=== PATIENT | male | born 1995 | race Caucasian/White ===

== ENCOUNTER 2022-05-13 15:02 | Outpatient (RCR) | payer SELFPAY | END 2022-05-17 | LOC: M OUTALCOH 15:02 | PROVIDERS: ATTEND Psychiatry & Neurology Psychiatry | DX: F11.20 Opioid dependence, uncomplicated (principal); F15.20 Other stimulant dependence, uncomplicated; F12.20 Cannabis dependence, uncomplicated; F17.200 Nicotine dependence, unspecified, uncomplicated ==

== ENCOUNTER → 2022-06-17 | Outpatient (RCR) | payer OTHER | LOC: M OUTALCOH 05-20 12:44 | PROVIDERS: ATTEND Psychiatry & Neurology Psychiatry | DX: F11.20 Opioid dependence, uncomplicated (principal); F15.20 Other stimulant dependence, uncomplicated; F12.20 Cannabis dependence, uncomplicated; F17.200 Nicotine dependence, unspecified, uncomplicated ==

== ENCOUNTER 2022-07-16 09:00 | Outpatient (RCR) | payer OTHER | END 2022-07-17 | LOC: M OUTALCOH 09:00 | PROVIDERS: ATTEND Psychiatry & Neurology Psychiatry | DX: F11.20 Opioid dependence, uncomplicated (principal); F15.20 Other stimulant dependence, uncomplicated; F12.20 Cannabis dependence, uncomplicated; F17.200 Nicotine dependence, unspecified, uncomplicated ==

== ENCOUNTER → 2022-08-17 | Outpatient (RCR) | payer OTHER ==
[~2022-08-17] MED LIST: BACT800T5 PO
== END ==
LOC: M OUTALCOH 07-20 14:00
PROVIDERS: ATTEND Psychiatry & Neurology Psychiatry
DX: F11.20 Opioid dependence, uncomplicated (principal); F15.20 Other stimulant dependence, uncomplicated; F12.20 Cannabis dependence, uncomplicated; F17.200 Nicotine dependence, unspecified, uncomplicated

== ENCOUNTER 2022-08-23 12:38 | Emergency (ER) | payer OTHER ==
[~2022-08-23] VITALS: Ht 172.7 cm; Wt 77.3 kg
[2022-08-23] MEDS ORDERED: BACTRIM 160MG/800MG DS TAB PO ONE (15:15)
[2022-08-23] MEDS ORDERED: BACT800T5 PO (15:16)
[2022-08-23 15:30] VITALS: BP 128/70
== END 2022-08-23 15:43 | disposition home or self-care (01) ==
LOC: M ED 12:38
DX: L05.01 Pilonidal cyst with abscess (principal); F17.200 Nicotine dependence, unspecified, uncomplicated; Z79.899 Other long term (current) drug therapy

== ENCOUNTER 2022-08-25 16:56 | Emergency (ER) | payer OTHER ==
[~2022-08-25] VITALS: Ht 172.7 cm; Wt 73.1 kg
[2022-08-25 21:09] VITALS: BP 139/75
== END 2022-08-25 21:19 | disposition home or self-care (01) ==
LOC: M ED 16:56
DX: L05.01 Pilonidal cyst with abscess (principal)

== ENCOUNTER 2022-09-15 09:00 | Outpatient (RCR) | payer OTHER | END 2022-09-16 | LOC: M OUTALCOH 09:00 | PROVIDERS: ATTEND Psychiatry & Neurology Psychiatry | DX: F11.20 Opioid dependence, uncomplicated (principal); F15.20 Other stimulant dependence, uncomplicated; F12.20 Cannabis dependence, uncomplicated; F17.200 Nicotine dependence, unspecified, uncomplicated ==

== ENCOUNTER 2022-10-15 12:42 | Outpatient (RCR) | payer OTHER | END 2022-10-17 | LOC: M OUTALCOH 12:42 | PROVIDERS: ATTEND Psychiatry & Neurology Psychiatry | DX: F11.20 Opioid dependence, uncomplicated (principal); F15.20 Other stimulant dependence, uncomplicated; F12.20 Cannabis dependence, uncomplicated; F17.200 Nicotine dependence, unspecified, uncomplicated ==

== ENCOUNTER 2022-11-16 16:00 | Outpatient (RCR) | payer OTHER | END 2022-11-17 | LOC: M OUTALCOH 16:00 | PROVIDERS: ATTEND Psychiatry & Neurology Psychiatry | DX: F11.20 Opioid dependence, uncomplicated (principal); F15.20 Other stimulant dependence, uncomplicated; F12.20 Cannabis dependence, uncomplicated; F17.200 Nicotine dependence, unspecified, uncomplicated ==

== ENCOUNTER 2022-12-10 11:04 | Outpatient (RCR) | payer OTHER | END 2022-12-15 | LOC: M OUTALCOH 11:04 | PROVIDERS: ATTEND Psychiatry & Neurology Psychiatry | DX: F11.20 Opioid dependence, uncomplicated (principal); F15.20 Other stimulant dependence, uncomplicated; F12.20 Cannabis dependence, uncomplicated; F17.200 Nicotine dependence, unspecified, uncomplicated ==

== ENCOUNTER 2023-01-12 15:52 | Emergency (ER) | payer OTHER ==
[~2023-01-12] VITALS: Ht 170.2 cm; Wt 75.6 kg
[2023-01-12] MEDS ORDERED: QUET100T2 (15:58)
[2023-01-12] MEDS ORDERED: BUPR1FIL37 (15:58)
[2023-01-12] MEDS ORDERED: INTU2TAB (15:58)
[2023-01-12] MEDS ORDERED: QUET50TA4 (15:58)
[2023-01-12 18:02] VITALS: BP 109/57
== END 2023-01-12 18:05 | disposition home or self-care (01) ==
LOC: M ED 15:52
DX: S80.812A Abrasion, left lower leg, initial encounter (principal); S80.12XA Contusion of left lower leg, initial encounter; W22.09XA Striking against other stationary object, initial encounter; Y92.89 Other specified places as the place of occurrence of the external cause; Y93.89 Activity, other specified; Y99.0 Civilian activity done for income or pay; F17.200 Nicotine dependence, unspecified, uncomplicated

== ENCOUNTER 2023-01-13 15:00 | Outpatient (RCR) | payer OTHER ==
[~2023-01-13 15:00] MED LIST changes: +BUPR1FIL37; +INTU2TAB; +QUET100T2; +QUET50TA4
== END 2023-01-15 ==
LOC: M OUTALCOH 15:00
PROVIDERS: ATTEND Psychiatry & Neurology Psychiatry
DX: F11.20 Opioid dependence, uncomplicated (principal); F15.20 Other stimulant dependence, uncomplicated; F12.20 Cannabis dependence, uncomplicated; F17.200 Nicotine dependence, unspecified, uncomplicated

== ENCOUNTER 2023-02-09 09:10 | Outpatient (RCR) | payer OTHER | END 2023-02-14 | LOC: M OUTALCOH 09:10 | PROVIDERS: ATTEND Internal Medicine | DX: F11.20 Opioid dependence, uncomplicated (principal); F15.20 Other stimulant dependence, uncomplicated; F12.20 Cannabis dependence, uncomplicated; F17.200 Nicotine dependence, unspecified, uncomplicated ==

== ENCOUNTER 2023-03-11 10:37 | Outpatient (RCR) | payer OTHER | END 2023-03-17 | LOC: M OUTALCOH 10:37 | PROVIDERS: ATTEND Internal Medicine | DX: F11.20 Opioid dependence, uncomplicated (principal); F15.20 Other stimulant dependence, uncomplicated; F12.20 Cannabis dependence, uncomplicated; F17.200 Nicotine dependence, unspecified, uncomplicated ==

== ENCOUNTER 2023-04-08 09:29 | Outpatient (RCR) | payer OTHER | END 2023-04-16 | LOC: M OUTALCOH 09:29 | PROVIDERS: ATTEND Psychiatry & Neurology Psychiatry | DX: F11.20 Opioid dependence, uncomplicated (principal); F15.20 Other stimulant dependence, uncomplicated; F12.20 Cannabis dependence, uncomplicated; F17.200 Nicotine dependence, unspecified, uncomplicated ==

== ENCOUNTER 2023-04-25 20:50 | Emergency (ER) | payer OTHER ==
[~2023-04-25] VITALS: Ht 172.7 cm; Wt 70.9 kg
[2023-04-25 20:51] VITALS: BP 166/94; TEMP 100.1; O2SAT 98
== END 2023-04-25 23:08 | disposition left against medical advice (07) ==
LOC: M ED 20:50
DX: Z53.21 Procedure and treatment not carried out due to patient leaving prior to being seen by health care provider (principal)

== ENCOUNTER 2023-05-06 11:14 | Outpatient (RCR) | payer OTHER | END 2023-05-17 | LOC: M OUTALCOH 11:14 | PROVIDERS: ATTEND Psychiatry & Neurology Psychiatry | DX: F11.20 Opioid dependence, uncomplicated (principal); F15.20 Other stimulant dependence, uncomplicated; F12.20 Cannabis dependence, uncomplicated; F17.200 Nicotine dependence, unspecified, uncomplicated ==

== ENCOUNTER 2023-05-31 09:45 | Outpatient (RCR) | payer OTHER | END 2023-06-17 | LOC: M OUTALCOH 09:45 | PROVIDERS: ATTEND Psychiatry & Neurology Psychiatry | DX: F11.20 Opioid dependence, uncomplicated (principal); F15.20 Other stimulant dependence, uncomplicated; F12.20 Cannabis dependence, uncomplicated; F17.200 Nicotine dependence, unspecified, uncomplicated ==

== ENCOUNTER → 2024-05-03 | Outpatient (CLI) | payer OTHER | LOC: M OUTALCOH 09:06 | PROVIDERS: ATTEND Psychiatry & Neurology Psychiatry | DX: F11.20 Opioid dependence, uncomplicated (principal); F15.20 Other stimulant dependence, uncomplicated; F12.20 Cannabis dependence, uncomplicated; F17.200 Nicotine dependence, unspecified, uncomplicated ==

== ENCOUNTER 2024-05-12 11:06 | Outpatient (RCR) | payer OTHER | END 2024-05-17 | LOC: M OUTALCOH 11:06 | PROVIDERS: ATTEND Psychiatry & Neurology Psychiatry | DX: F11.20 Opioid dependence, uncomplicated (principal); F15.20 Other stimulant dependence, uncomplicated; F10.20 Alcohol dependence, uncomplicated; F17.200 Nicotine dependence, unspecified, uncomplicated ==

== ENCOUNTER → 2024-05-17 | Outpatient (RCR) | payer OTHER | LOC: M OUTALCOH 05-08 08:24 | PROVIDERS: ATTEND Psychiatry & Neurology Child & Adolescent Psychiatry | DX: F11.20 Opioid dependence, uncomplicated (principal); F15.20 Other stimulant dependence, uncomplicated; F10.20 Alcohol dependence, uncomplicated; F17.200 Nicotine dependence, unspecified, uncomplicated ==

== ENCOUNTER 2024-06-14 08:00 | Outpatient (RCR) | payer OTHER | END 2024-06-17 | LOC: M OUTALCOH 08:00 | PROVIDERS: ATTEND Psychiatry & Neurology Psychiatry | DX: F11.20 Opioid dependence, uncomplicated (principal); F15.20 Other stimulant dependence, uncomplicated; F10.20 Alcohol dependence, uncomplicated; F17.200 Nicotine dependence, unspecified, uncomplicated ==

== ENCOUNTER 2024-07-12 13:00 | Outpatient (RCR) | payer OTHER | END 2024-07-17 | LOC: M OUTALCOH 13:00 | PROVIDERS: ATTEND Psychiatry & Neurology Psychiatry | DX: F11.20 Opioid dependence, uncomplicated (principal); F15.20 Other stimulant dependence, uncomplicated; F10.20 Alcohol dependence, uncomplicated; F17.200 Nicotine dependence, unspecified, uncomplicated ==

== ENCOUNTER 2024-08-09 10:59 | Emergency (ER) | payer OTHER ==
[~2024-08-09] VITALS: Ht 170.2 cm; Wt 75.5 kg
[2024-08-09 14:12] LABS: BASO % 0.4 % (0.0-1.0); EOS # 0.1 10^3/uL (0.0-0.5); EOS % 1.4 % (0.0-3.0); HEMATOCRIT 42.4 % (42.0-52.0); HEMOGLOBIN 14.9 g/dl (13.5-17.5); LYMPH # 2.7 10^3/uL (1.5-5.0); LYMPH % 37.6 % (24.0-44.0); MEAN CORPUSCULAR HGB CONC 35.1 g/dl (32.0-36.5); MONO # 0.7 10^3/uL (0.0-0.8); MONO % 10.1 % (2.0-8.0); NEUTROPHILS # 3.6 10^3/uL (1.5-8.5); NEUTROPHILS % 50.2 % (36.0-66.0); PLATELET COUNT, AUTOMATED 183 10^3/uL (150-450); RED BLOOD COUNT 4.66 10^6/uL (4.30-6.10); WHITE BLOOD COUNT 7.1 10^3/uL (4.0-10.0)
[2024-08-09 14:17] LABS: ERYTHROCYTE SEDIMENTATION RATE 6 mm/hr (0-15)
[2024-08-09 15:59] LABS: BLOOD UREA NITROGEN 10 MG/DL (9-23); CALCIUM LEVEL 9.7 MG/DL (8.5-10.1); CARBON DIOXIDE LEVEL 25 MMOL/L (20-31); CHLORIDE LEVEL 111 MMOL/L (98-107); CREATININE FOR GFR 0.71 MG/DL (0.70-1.30); GLOMERULAR FILTRATION RATE > 60.0 (>60); GLUCOSE, FASTING 91 MG/DL (60-100); POTASSIUM SERUM 4.3 MMOL/L (3.5-5.1); SODIUM LEVEL 143 MMOL/L (136-145)
[2024-08-09] MEDS ORDERED: CEPH500C PO (16:45)
[2024-08-09 16:50] VITALS: BP 118/83; TEMP 96.5; O2SAT 99
[2024-08-09] MEDS: NEOSPORIN TOP OINT 15GM TOP ONE (16:53)
[2024-08-09] MEDS: CEPHALEXIN 500 MG CAP PO ONE (16:53)
[2024-08-09] MEDS: BOOSTRIX VACCINE (TETANUS/DIPHTH/ACEL. PERTUSSIS) 0.5ML SYR IM ONE (16:54)
== END 2024-08-09 17:08 | disposition home or self-care (01) ==
LOC: M ED 10:59
DX: T25.121A Burn of first degree of right foot, initial encounter (principal); F17.200 Nicotine dependence, unspecified, uncomplicated; Y92.9 Unspecified place or not applicable; Y93.89 Activity, other specified; Y99.0 Civilian activity done for income or pay; Z79.899 Other long term (current) drug therapy; Z23 Encounter for immunization; T32.0 Corrosions involving less than 10% of body surface

== ENCOUNTER → 2024-08-17 | Outpatient (RCR) | payer OTHER ==
[~2024-08-17] MED LIST changes: +CEPH500C PO
== END ==
LOC: M OUTALCOH 07-19 13:46
PROVIDERS: ATTEND Psychiatry & Neurology Psychiatry
DX: F11.20 Opioid dependence, uncomplicated (principal); F15.20 Other stimulant dependence, uncomplicated; F10.20 Alcohol dependence, uncomplicated; F17.200 Nicotine dependence, unspecified, uncomplicated

== ENCOUNTER 2024-09-08 15:00 | Outpatient (RCR) | payer OTHER | END 2024-09-16 | LOC: M OUTALCOH 15:00 | PROVIDERS: ATTEND Psychiatry & Neurology Psychiatry | DX: F11.20 Opioid dependence, uncomplicated (principal); F15.20 Other stimulant dependence, uncomplicated; F10.20 Alcohol dependence, uncomplicated; F17.200 Nicotine dependence, unspecified, uncomplicated ==

== ENCOUNTER 2024-10-02 09:02 | Outpatient (RCR) | payer OTHER | END 2024-10-17 | LOC: M OUTALCOH 09:02 | PROVIDERS: ATTEND Psychiatry & Neurology Psychiatry | DX: F11.20 Opioid dependence, uncomplicated (principal); F15.20 Other stimulant dependence, uncomplicated; F10.20 Alcohol dependence, uncomplicated; F17.200 Nicotine dependence, unspecified, uncomplicated ==

== ENCOUNTER 2024-10-02 15:14 | Emergency (ER) | payer OTHER ==
[~2024-10-02] VITALS: Ht 170.2 cm; Wt 70.6 kg
[2024-10-02 18:12] VITALS: BP 132/78; TEMP 99.8; O2SAT 98
== END 2024-10-02 18:14 | disposition home or self-care (01) ==
LOC: M ED 15:14
DX: S90.821A Blister (nonthermal), right foot, initial encounter (principal); S90.822A Blister (nonthermal), left foot, initial encounter; F17.200 Nicotine dependence, unspecified, uncomplicated; F19.10 Other psychoactive substance abuse, uncomplicated; Z79.2 Long term (current) use of antibiotics; Z79.899 Other long term (current) drug therapy; Y92.9 Unspecified place or not applicable; Y93.9 Activity, unspecified; Y99.9 Unspecified external cause status